=== PATIENT | female | born 2005 | race Two or more races ===

== ENCOUNTER 2025-01-30 08:51 | Emergency (ER) | payer OTHER ==
[~2025-01-30] VITALS: Ht 172.7 cm; Wt 75.0 kg
--- NOTE | 2025-01-30 09:41 | ED.PDOC ---
HPI Comments Rick Espitia is a 19-year-old female with past medical history of anxiety and depression. The patient came to the ED with chief complain of 2 hrs of chest pain, 6/10, pressure-like, localized on the left side and irradiates to the left shoulder. Associated with nausea. The patient denies SOB, palpitation, fever or chills. The patient reports she has not experieced this type of Chief Complaint: Chest Pain Time Seen by MD: 09:18 Reviewed Notes: Nurses Notes, Medications, Allergies Information Source: Patient, Relative (Mother) Mode of Arrival: EMS Severity: Mild Timing: Hours Duration: Since onset Location: Chest (L) Radiation: Shoulder (L) Quality: Pressure Onset: At Rest Cardiac Risk Factors: None PE Risk Factors: None History of: None Modifying Factors: Breathing Past Medical History PAST MEDICAL HISTORY: Anxiety, Depression Surgical History: Denies all surgeries BUNDLE HELPER History: Denies all BUNDLE HELPER Hx LMP 01/27/2025 Family History Family History: Reviewed,noncontributory to illness Social History Smoker: Non-Smoker Alcohol: Denies ETOH Use Drugs: Denies Drug Use Lives In: Home Constitutional: denies: chills, diaphoresis, fatigue, fever, malaise, sweats, weakness, others EENTM: denies: blurred vision, double vision, ear bleeding, ear discharge, ear drainage, ear pain, ear ringing, eye pain, eye redness, hearing loss, mouth pain, mouth swelling, nasal discharge, nose bleeding, nose congestion, nose pain, photophobia, tearing, throat pain, throat swelling, voice changes, others Respiratory: denies: cough, hemoptysis, orthopnea, SOB at rest, shortness of breath, SOB with excertion, stridor, wheezing, others Cardiovascular: reports: chest pain; denies: dizzy spells, diaphoresis, Dyspnea on exertion, edema, irregular heart beat, left arm pain, lightheadedness, palpitations, PND, syncope, others Gastrointestinal: denies: abdomen distended, abdominal pain, blood streaked bowels, constipated, diarrhea, dysphagia, difficulty swallowing, hematemesis, melena, nausea, poor appetite, poor fluid intake, rectal bleeding, rectal pain, vomiting, others Genitourinary: denies: abnormal vagina bleeding, burning, dyspareunia, dysuria, flank pain, frequency, hematuria, incontinence, pain, , vagina discharge, urgency, others Neurological: denies: dizziness, fainting, headache, left sided numbness, left sided weakness, numbness, paresthesia, pre-existing deficit, right sided num bness, right sided weakness, seizure, speech problems, tingling, tremors, weakness, others Musculoskeletal: denies: back pain, gout, joint pain, joint swelling, muscle pain, muscle stiffness, neck pain, others Integumetry: denies: bruises, change in color, change in hair/nails, dryness, laceration, lesions, lumps, rash, wounds, others Allergic/Immunocompromised: denies: Difficulty Healing, Frequent Infections, Hives, Itching, others Hematologic/Lymphatic: denies: anemia, blood clots, easy bleeding, easy bruising, swollen glands, others Endocrine: denies: excessive hunger, excessive sweating, excessive thirst, excessive urination, flushing, intolerance to cold, intolerance to heat, unexplained weight gain, unexplained weight loss, others Psychiatric: denies: anxiety, bipolar disorder, depression, hopeless, panic disorder, schizophrenia, sleepless, suicidal, others Physical Exam General Appearance: No Apparent Distress, Normal HEENT: Normal ENT Inspection, Pharynx Normal, TMs Normal Neck: Full Range of Motion, Non-Tender, Normal, Normal Inspection Respiratory: Chest Non-Tender, Lungs Clear, No Accessory Muscle Use, No Respiratory Distress, Normal Breath Sounds Cardiovascular: No Edema, No JVD, No Murmur, No Gallop, Normal Peripheral Pulses, Regular Rate/Rhythm Breast Exam: Deferred Gastrointestinal: No Organomegaly, Non Tender, No Pulsatile Mass, Normal Bowel Sounds, Soft Genitalia: Deferred Pelvic: Deferred Rectal: Deferred Extremities: No calf tenderness, Normal capillary refill, Normal inspection, Normal range of motion, Non-tender, No pedal edema Neurologic: Alert, purse seining hand II-XII nml as Tested, No Motor Deficits, Normal Affect, Normal Mood, No Sensory Deficits Cerebellar Function: Normal Reflexes: Normal Skin: Dry, Normal Color, Warm Lymphatic: No Adenopathy EKG EKG : [place]: Normal Cardiac Rhythm: NSR Hypertrophy: None ST: Normal Was a procedure done? Was a procedure done?: No CP Differential Dx Differential Diagnosis: Anxiety / Panic Attack, Hyperventilation Differential Diagnosis: N/A X-Ray, Labs, Meds, VS Vital Signs Date Time Temp Pulse Resp B/P (MAP) Pulse Ox O2 Delivery O2 Flow Rate FiO2 01/30/25 10:32 98.1 75 16 114/72 (86) 99 98.1 01/30/25 09:50 82 01/30/25 08:58 94 01/30/25 08:55 98.3 91 18 119/77 96 98.3 Lab Test 01/30/25 10:07 01/30/25 09:01 Range/Units Troponin I High Sensitivity < 3 L < 3 L </=34 ng/L X-Ray, Labs, Meds, VS Comment The patient was re-evaluateed, vital signs are wnl. Troponins WNL, second EKG: Sinus rhythm WNL Patient reports feeling better. Time of 1ST Reevaluation: 11:00 Reevaluation 1ST: Improved Patient Education/Counseling: Diagnosis, Treatment, Prognosis, Need For Follow Up Family Education/Counseling: Diagnosis, Treatment, Prognosis SEPSIS Sepsis Screen Date sepsis recognized/suspect: Jan 30, 2025 Time Sepsis recognized/suspect: 0856 Recent Procedure: No On Antibiotic Therapy: No Respiratory Rate >20: No Heart Rate >90: Yes Temp<36 C (96.8 F) or >38.3 C: No SBP <90 or MAP <65 mmHG: No New Acute Mental Status Change: No Is the patient on CPAP, BIPAP,: No Physician Orders Electrocardigram (01/30/25 08:54) Electrocardigram (01/30/25 09:54) Electrocardigram (01/30/25 11:54) Urinalysis (01/30/25 09:38) Drug Screen (01/30/25 09:38) Test, Urine (01/30/25 13:50) Vital Signs Date Time Temp Pulse Resp B/P (MAP) Pulse Ox O2 Delivery O2 Flow Rate FiO2 01/30/25 10:32 98.1 75 16 114/72 (86) 99 98.1 01/30/25 09:50 82 01/30/25 08:58 94 01/30/25 08:55 98.3 91 18 119/77 96 98.3 Departure 1 Departure Time of Disposition: 11:29 Impression: Primary Impression: Anxiety Additional Impression: Costochondral chest pain Disposition: 01 HOME / SELF CARE / HOMELESS Condition: Good Referrals F/U with PCP at [facility] in 1 week Counselling about warning signs and when to go to the nearest ER. Additional Instructions: Ibuprofen 600mg po prn for pain (over the counter) Continue with Zoloft for anxiety (Patient has this medication) Discharged With: Self, Relative (Mother) Comments Goals of care discussed with the patient > 35 min. Discussed plan of care with Dr. Loredo Code status: Full code PCP: Patient does not recall name Plan discussed with: Patient and her mother, the patient and her mother agree with the plan. Critical Care Note Critical Care Time?: No Stability Stability form required: No Heart Score Heart Score: Heart Score Response (Comments) Value History Slightly Suspicious 0 EKG Normal 0 Age <45 0 Risk Factors No known risk factors 0 Troponin Normal limit 0 Total 0 MEG LEAL RESIDENT Jan 30, 2025 09:41
[2025-01-30 10:32] VITALS: BP 114/72; PULSE 75; RESP 16; TEMP 98.1; O2SAT 99
--- NOTE | 2025-02-02 13:44 | ECG ---
[facility] Test Date: 2025-01-30 Test Time: 08:55:35 Pat Name: HOLLY BELLO Department: [facility] ED Patient ID: [facility]-[id number] Room: Gender: F Medical Associate: CHACORTA : 2005 Requested By: MEG LAEL Order Number: [id number] Reading MD: Measurements Intervals [place] Rate: 94 P: 18 [place]: 135 QRS: 6 QRSD: 91 T: 0 QT: 351 QTc: 439 Interpretive Statements Sinus rhythm Nonspecific T abnormalities, anterior leads Please click the below link to view image of tracing.
--- NOTE | 2025-02-02 13:44 | ECG ---
[facility] Test Date: 2025-01-30 Test Time: 09:47:10 Pat Name: HOLLY BELLO Department: [facility] ED Patient ID: [facility]-[id number] Room: Gender: F Licensed Massage Therapist: CHACORTA : 2005 Requested By: MEG LEAL Order Number: [id number] Reading MD: Measurements Intervals [place] Rate: 82 P: 21 [place]: 132 QRS: 14 QRSD: 83 T: 5 QT: 368 QTc: 430 Interpretive Statements Sinus rhythm Please click the below link to view image of tracing.
== END 2025-01-30 12:06 | disposition home or self-care (01) ==
LOC: EDBD 08:51 → ER 08:51
DX: R07.1 Chest pain on breathing (principal); F41.9 Anxiety disorder, unspecified; F32.A Depression, unspecified
CPT/HCPCS: 36415; 84484; 93005